=== PATIENT | male | born 1955 | race Native Hawaiian/Other Pacific Islander ===

== ENCOUNTER 2019-04-08 20:17 | Outpatient (CLI) | payer OTHER | END 2019-04-08 20:25 | disposition short-term general hospital (02) | LOC: AMB 20:17 | DX: M54.5 Low back pain (principal); M79.605 Pain in left leg; M25.572 Pain in left ankle and joints of left foot; M25.552 Pain in left hip; V89.2XXA Person injured in unspecified motor-vehicle accident, traffic, initial encounter; Y92.488 Other paved roadways as the place of occurrence of the external cause | CPT/HCPCS: A0425; A0427 ==

== ENCOUNTER 2019-04-28 13:30 | Inpatient (IN) | payer OTHER ==
[~2019-04-28] VITALS: Ht 180.3 cm; Wt 99.8 kg
[2019-04-28 19:55] LABS: PLATELET COUNT 185 K/uL (142-355)
[2019-04-28 20:00] VITALS: BP 140/79; TEMP 97.7
[2019-04-28 20:19] LABS: POTASSIUM 3.7 mmol/L (3.6-5.2)
[2019-04-28 20:34] VITALS: BP 138/78; TEMP 99.2; Ht 180.3 cm; Wt 99.8 kg
[2019-04-29 08:00] VITALS: BP 126/72; TEMP 98
[2019-04-29 20:00] VITALS: BP 114/71; TEMP 98.4
[2019-04-30 04:00] VITALS: TEMP 97
[2019-04-30 08:00] VITALS: BP 118/72; TEMP 98.5
[2019-04-30 19:45] VITALS: BP 115/72; TEMP 99.4
[2019-05-01 08:00] VITALS: BP 115/63; TEMP 98.3
[2019-05-01 20:00] VITALS: BP 135/78; TEMP 100.1
[2019-05-02 08:00] VITALS: BP 122/69; TEMP 100.6
[2019-05-02 20:00] VITALS: BP 107/72; TEMP 99.7
[2019-05-03 08:00] VITALS: BP 117/73; TEMP 99.5
[2019-05-03 20:00] VITALS: BP 131/80; TEMP 98.1
[2019-05-04 08:00] VITALS: BP 122/73; TEMP 98.4
[2019-05-04 20:00] VITALS: BP 123/69; TEMP 98.4
[2019-05-05 08:00] VITALS: BP 129/78; TEMP 98.8
[2019-05-05 20:00] VITALS: BP 142/70; TEMP 100
[2019-05-06 20:00] VITALS: BP 133/77; TEMP 99.1
[2019-05-07 08:00] VITALS: BP 143/86; TEMP 98.4
[2019-05-07 20:00] VITALS: BP 128/78; TEMP 99.6
[2019-05-08 08:00] VITALS: BP 132/80; TEMP 99.4
[2019-05-08 20:00] VITALS: BP 121/62; TEMP 98.4
[2019-05-09 20:00] VITALS: BP 135/84; TEMP 99.1
[2019-05-10 08:00] VITALS: BP 147/86; TEMP 98.2
[2019-05-10 20:00] VITALS: BP 144/75; TEMP 98.6
[2019-05-11 08:00] VITALS: BP 128/84; TEMP 97.9
[2019-05-11 20:00] VITALS: BP 109/68; TEMP 98.7
[2019-05-12 08:00] VITALS: BP 104/53; TEMP 97.7
[2019-05-12 20:00] VITALS: BP 125/74; TEMP 99.5
[2019-05-13 08:00] VITALS: BP 122/73; TEMP 98.5
[2019-05-13 19:48] VITALS: BP 104/73; TEMP 98.2
[2019-05-14 08:00] VITALS: BP 142/72; TEMP 98.2
[2019-05-14 20:00] VITALS: BP 124/79; TEMP 98.4
[2019-05-15 08:00] VITALS: BP 101/71; TEMP 97.6
[2019-05-15 20:06] VITALS: BP 124/68; TEMP 98.2
[2019-05-16 08:00] VITALS: BP 127/69; TEMP 97.5
== END 2019-05-16 10:30 | disposition home health service (06) | DRG 556 ==
LOC: MED/SURG 13:30
PROVIDERS: ADMIT Internal Medicine
DX: M62.81 Muscle weakness (generalized) (principal); Z47.89 Encounter for other orthopedic aftercare; I10 Essential (primary) hypertension; E11.9 Type 2 diabetes mellitus without complications; R33.8 Other retention of urine; K70.30 Alcoholic cirrhosis of liver without ascites; K59.00 Constipation, unspecified; R14.0 Abdominal distension (gaseous); R62.7 Adult failure to thrive
CPT/HCPCS: 36415; 80053; 81000; 85027; 87077; 87081; 87086; 87088; 87186; J1815; J7040

== ENCOUNTER 2019-06-24 09:49 | Day surgery (SDC) | payer OTHER ==
[2019-06-24 10:27] LABS: PLATELET COUNT 65 K/uL (142-355)
[2019-06-24 10:35] LABS: POTASSIUM 3.9 mmol/L (3.6-5.2)
[2019-06-24 13:51] LABS: PARTIAL THROMBOPLASTIN TIME 25.9 SECONDS (24.5-33.6)
== END 2019-06-24 14:28 | disposition home or self-care (01) ==
LOC: OR 09:49
PROVIDERS: Internal Medicine Gastroenterology
PROC: 0DB68ZZ Excision of Stomach, Via Natural or Artificial Opening Endoscopic (ICD-10-PCS; principal; 2019-06-24)
DX: I85.00 Esophageal varices without bleeding (principal); K76.6 Portal hypertension; K31.89 Other diseases of stomach and duodenum; K29.50 Unspecified chronic gastritis without bleeding; B96.81 Helicobacter pylori [H. pylori] as the cause of diseases classified elsewhere; R10.13 Epigastric pain; R19.06 Epigastric swelling, mass or lump; K21.0 Gastro-esophageal reflux disease with esophagitis; K25.9 Gastric ulcer, unspecified as acute or chronic, without hemorrhage or perforation
CPT/HCPCS: 80053; 80074; 82103; 82390; 82525; 82728; 83516; 83540; 83550; 85027; 85610; 85730; 86038; J2001; J2405; J2704

== ENCOUNTER 2020-07-26 08:48 | Outpatient (CLI) | payer OTHER | END 2020-07-26 23:06 | disposition home or self-care (01) | LOC: RAD 08:48 | PROVIDERS: ATTEND Nurse Practitioner Family | DX: R06.02 Shortness of breath (principal) ==

== ENCOUNTER 2020-09-13 08:22 | Outpatient (CLI) | payer OTHER | END 2020-09-13 19:52 | disposition home or self-care (01) | LOC: CT 08:22 | PROVIDERS: ATTEND Nurse Practitioner Family | DX: I10 Essential (primary) hypertension (principal); R93.89 Abnormal findings on diagnostic imaging of other specified body structures | CPT/HCPCS: 36415; 82565; 84520; Q9963 ==

== ENCOUNTER 2021-05-25 15:06 | Outpatient (CLI) | payer OTHER | END 2021-05-25 18:58 | disposition home or self-care (01) | LOC: RAD 15:06 | PROVIDERS: ATTEND Nurse Practitioner Family | DX: R06.02 Shortness of breath (principal) ==

== ENCOUNTER 2021-06-05 11:50 | Emergency (ER) | payer OTHER ==
[~2021-06-05] VITALS: Ht 182.9 cm; Wt 95.3 kg
[2021-06-05 12:00] VITALS: TEMP 99
[2021-06-05 12:42] LABS: PLATELET COUNT 47 K/uL (142-355)
[2021-06-05 12:48] LABS: POTASSIUM 3.8 mmol/L (3.6-5.2)
[2021-06-05 16:00] VITALS: BP 142/74
== END 2021-06-05 16:19 | disposition home or self-care (01) ==
LOC: ED 11:50
PROVIDERS: Emergency Medicine
DX: R14.0 Abdominal distension (gaseous) (principal); K70.31 Alcoholic cirrhosis of liver with ascites; E11.65 Type 2 diabetes mellitus with hyperglycemia; Z79.84 Long term (current) use of oral hypoglycemic drugs; D72.818 Other decreased white blood cell count
CPT/HCPCS: 80053; 80307; 80320; 81000; 82150; 83690; 85027; 99283; Q9963

== ENCOUNTER 2022-03-23 08:48 | Outpatient (CLI) | payer OTHER | END 2022-03-23 19:02 | disposition home or self-care (01) | LOC: US 08:48 | PROVIDERS: ATTEND Nurse Practitioner Family | DX: R10.11 Right upper quadrant pain (principal) ==